=== PATIENT | male | born 2000 ===

== ENCOUNTER 2019-04-21 10:08 | Emergency (ER) | payer MEDICAID ==
[2019-04-21] MEDS ORDERED: CEPHALEXIN 500 MG CAPSULE PO STA (10:45)
--- NOTE | 2019-04-21 10:52 | Emergency Department Record ---
History of Present Illness - General Chief Complaint: Laceration(s) Stated Complaint: LACERATION Time Seen by Provider: 04/21/19 10:37 Source: Patient Mode of Arrival: Ambulatory Limitations: No limitations - History of Present Illness Initial Commments: The patient is here due to a R thumb lac from 19 hours ago. 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 He had no numbness or pain with ROM after but did not seek care. The patient cleaned the wound very well and it did start bleeding today so he decided to seek care. The patient states his Td is UTD. Onset/Timin -: Days(s) Place: Work Context: Accidental Associated Symptoms: None - [place] Coma Scale Eye Response: (4) Open spontaneously Motor Response: (6) Obeys commands Verbal Response: (5) Oriented [place] Total: 15 - Related Data Patient Tetanus UTD (within 5 yrs): Yes (2015) Previous Rx's Medication Instructions Recorded Cephalexin [Keflex] 500 mg PO QID #20 cap 04/21/19 Allergies Allergy/AdvReac Type Severity Reaction Status Date / Time No Known Drug Allergies Allergy Verified 04/21/19 10:28 Travel Screening - Travel/Exposure Within Last 30 Days Have you traveled within the last 30 days?: No - Travel/Exposure Within Last Year Have you traveled outside the [place] in the last year?: No - Additonal Travel Details Have you been exposed to anyone with a communicable illness?: No - Travel Symptoms Symptom Screening: None Review of Systems Constitutional: Denies: Chills, Fever Eyes: Denies: Eye discharge ENT: Denies: Congestion Respiratory: Denies: Cough, Dyspnea Past Medical History - SOCIAL HISTORY Smoking Status: Never smoker Alcohol Use: None Drug Use: None - RESPIRATORY Hx Respiratory Disorders: No - CARDIOVASCULAR Hx Cardio Disorders: Yes Hx Irregular Heartbeat: Yes (tachycardia) - NEURO Hx Neuro Disorders: No - GI Hx GI Disorders: No - Hx Genitourinary Disorders: No - ENDOCRINE Hx Endocrine Disorders: No - MUSCULOSKELETAL Hx Musculoskeletal Disorders: No - PSYCH Hx Psych Problems: No - HEMATOLOGY/ONCOLOGY Hx Hematology/Oncology Disorders: No Family Medical History Any Significant Family History?: Yes Physical Exam - General General Appearance: Alert, Oriented x3, Cooperative, No acute distress - Head Head exam: Atraumatic, Normocephalic - Eye Eye exam: Normal appearance - Extremities Extremities exam: Full ROM, Normal capillary refill, Tenderness (at the lac si te.). negative: Normal inspection (There is a horizontal 1 cm lac to the dorsal thumb midway betweeen the MCP and DIP joints. There is normal sensation distally and normal extension without pain. The wound appears very clean and without any swelling, purulence, erythema, or any signs of infection.), Joint swelling Course Vital Signs 04/21/19 10:21 Temperature 98.2 F Pulse Rate 58 L Respiratory 16 Rate Blood Pressure 132/72 Pulse Ox 100 - Reevaluation(s) Reevaluation #1: I explained to the patient that due to the wound being 19 hours old I am unable to suture it. It appears VERY clean at this time and since the patient has normal sensation distally and normal extensor tendon function I do not feel the need to re-open the wound up. The patient will be placed on Keflex and is to keep the thumb clean and dry and is to return to the ER in 2 days for recheck and a delayed primary closure if no infection is present at that time. 04/21/19 10:50 Disposition Disposition: Discharge Clinical Impression: Laceration of thumb Qualifiers: Encounter type: initial encounter Damage to nail status: without damage Foreign body presence: without foreign body Laterality: right Qualified Code(s): S61.011A - Laceration without foreign body of right thumb without damage to nail, initial encounter Disposition: Home, Self-Care Condition: (2) Stable Instructions: Laceration (ED) Additional Instructions: Keep clean and dry and take the Keflex. Please use Tylenol or Motrin for pain and return to the ER in 2 days for recheck and possible suturing. Prescriptions: Cephalexin [Keflex] 500 mg PO QID #20 cap Forms: Patient Portal Access Time of Disposition: 11:09 Quality - Quality Measures Quality Measures: N/A - Blood Pressure Screening View Details: Yes Does Patient Have Any of the Following: No Blood Pressure Classification: Pre-Hypertensive BP Reading Systolic Measurement: 132 Diastolic Measurement: 72 Screening for High Blood Pressure: < Pre-Hypertensive BP, F/U Documented > [[id number]] Pre-Hypertensive Follow-up Interventions: Referral to alternative/primary care provider.
== END 2019-04-21 11:16 | disposition home or self-care (01) ==
LOC: ER 10:08
DX: S61.011A Laceration without foreign body of right thumb without damage to nail, initial encounter (principal); W45.8XXA Other foreign body or object entering through skin, initial encounter; Y93.H3 Activity, building and construction; Y99.0 Civilian activity done for income or pay
CPT/HCPCS: 99282; 99283